=== PATIENT | male | born 1960 | race Caucasian/White ===

== ENCOUNTER 2017-08-11 16:01 | Emergency (ER) | payer BC ==
[~2017-08-11] VITALS: Ht 165.1 cm; Wt 68.0 kg
[~2017-08-11 16:01] MED LIST: KEFLEX 500MG.500 MG PO; TRAMADOL 50MG T50 MG PO
--- OUTSIDE RECORDS SUMMARY | 2017-08-11 16:20 | External Medical Summary Rpt | CCD ---
Author Author , DARIUS MCCOY Address Unknown Phone [email or web address] Purpose Continuity of Care Document - through 2016
--- OUTSIDE RECORDS SUMMARY | 2017-08-11 16:20 | External Medical Summary Rpt | CCD ---
Author Author , DARIUS MCCOY Address Unknown Phone [email or web address] Purpose Continuity of Care Document - through 2016
--- OUTSIDE RECORDS SUMMARY | 2017-08-11 16:21 | External Medical Summary Rpt | CCD ---
Author Author [employer] Organization [employer] Address Unknown Phone Unavailable Purpose Continuity of Care Document - through 2016
--- OUTSIDE RECORDS SUMMARY | 2017-08-11 16:21 | External Medical Summary Rpt ---
Author Author DARIUS Collins, [employer] Organization [employer] Address Unknown Phone Unavailable
--- OUTSIDE RECORDS SUMMARY | 2017-08-11 16:21 | External Medical Summary Rpt | CCD ---
Demographics Preferred Language Frisian Marital Status Unknown Temple Affiliation Unknown Race Unknown Ethnic Group Unknown Author Author , DARIUS MCCOY Address Unknown Phone Immunization No patient found.
--- OUTSIDE RECORDS SUMMARY | 2017-08-11 16:21 | External Medical Summary Rpt | CCD ---
Demographics Preferred Language Sinhala Marital Status Unknown Spiritism Affiliation Unknown Race Unknown Ethnic Group Unknown Author Author , DARIUS MCCOY Address Unknown Phone Immunization No patient found.
--- NOTE | 2017-08-11 16:27 | Emergency Room Report ---
History of Present Illness Time Seen by 161Marzena Presenting Problem in Triage Pt arrived:Walked Presenting Problem:PATIENT STATES HE HAD "AN ATTACK" AT WORK. STATES HE HAD CHEST TIGHTNESS, SHORTNESS OF BREATH, AND SHAKING. ALSO STATING THE BACK OF HIS NECK HURTS. WHEN ASKED IF HE HAS ISSUES WITH ANXIETY, PATIENT STATED, "i GUESS. " Onset of symptoms date/time:08/11/17 or onset unknown for: Treatment Prior to Arrival: [employer] Provided by: Sepsis Risk Assessment: Temp: 98.4 B/P: 185/119 MAP: 141 Pulse: 122 Resp: 20 Recent fever? N Clinical Suspician of Infection? N Mental Status: 1 - Regular (Normal Baseline) Sepsis Risk:Possible Sepsis Risk Have you (or family members/close friends) recently traveled outside the [place]? N If Yes, where/when: Have you had exposure to infectious disease within the past month? TB? Other? Specify: Patient felt anxious about 90 minutes ago, was at work, felt SOB, face and hands tingling, self resolving within a few minutes. No SOB now; no calf pain; no n/v, no diaphoresis, no cough. No pmh CAD; has hx HTN and dips tobacco; mom w/ hx CAD ; he denies DM; he denies hyperlipidemia. ALLERGIES Coded Allergies: NO KNOWN ALLERGIES (08/11/17) History Medical History General CAD? No Angina: No SD: No Hypertension? Yes Hyperlipidemia? No CHF? No DVT? No PE? No COPD? No Asthma? No Anemia? No GERD? No Gastric ulcers? No GI Bleed? No Hernia? No Thyroid Problems? No Hypothyroidism? No CVA? No Seizures? No Diabetes? No Renal Insuffiency? No End Stage Renal Disease? No UTI? No Stones? No BPH? No GB Disease: Yes Nephritic Syndrome? No Asplenia? No Hepatitis? No Sickle Cell Disease? No Arthritis? No Migraines? No Cataracts? No Glaucoma? No MRSA? No HIV? No TB? No Anxiety? Yes Depression? No Cancer? 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 Social History Smoking Hx Smoker: Former Smoker Tobacco: No Packs/day < 1 Pack Alcohol Alcohol: No Review of Systems All Other Systems Reviewed and Negative Cardiovascular see HPI Physical Exam Vital Signs Vital Signs Date Time Temp Pulse Resp B/P Pulse O2 O2 Flow FiO2 Ox Delivery Rate 08/11 1718 112 16 166/99 98 08/11 1607 98.4 122 20 185/119 94 General Appearance normal appearance, WD/WN, no apparent distress Eye Exam - bilateral eye normal exam, bilateral eye PERRL, bilateral eye EOMI Neck normal inspection, non-tender, supple, full range of motion Respiratory Status Yes: trachea midline, chest symmetrical, non tender chest. No: respiratory distress, tender on palpation, use of accessory muscles, pain on inspiration, pain on expiration, productive cough, non productive cough. Lung Sounds bilateral: normal breath sounds, lungs clear. Cardiovascular normal exam, regular rate/rhythm, no peripheral edema, no gallop, no JVD, no murmur, no rub, normal peripheral pulses Gastrointestinal normal bowel sounds, normal exam, non tender, soft, no organomegaly, no pulsatile mass, no guarding, no rebound Extremities non-tender, normal range of motion, normal inspection, normal capillary refill, no calf tenderness, no pedal edema Strength 5 Upper Ext (L), 5 Upper Ext (R), 5 Lower Ext (L), 5 Lower Ext (R) Neurologic alert, normal exam, no motor/sensory deficits, oriented x 3 Glascow Coma Scale Glascow Coma Scale Response Value EYE response: 4 Spontaneously 4 MOTOR response: 6 OBEYS 6 VERBAL response: 5 Oriented & Converses 5 Total 15 Skin intact, normal color, warm/dry Medical Decision Making LABS/Meds/Orders Pt receiving controlled substance in ED? No Results/Orders Laboratory Tests 08/11/17 1750: Troponin I < 0.02 08/11/17 1625: Sodium 139, Potassium 4.1, Chloride 103, Carbon Dioxide 30, BUN 18, Creatinine 1.4 H, Estimated Creat Clear 57, Estimated GFR (MDRD) 53, Glucose 107 H, Calcium 9.4, Total Bilirubin 0.4, AST 23, ALT 29, Alkaline Phosphatase 103, Creatine Kinase 194, CK-MB (CK-2) Rel Index 0.8, CK and CKMB Interp 1.6, Troponin I < 0.02, Total Protein 7.7, Albumin 4.3, Globulin 3.4 H, Albumin/ Globulin Ratio 1.3, WBC 7.6, RBC 4.94, Hgb 15.4, Hct 44.0, MCV 89.2, RDW 12.3, Plt Count 233, MPV 7.5, Gran % 54.1, Gran # 4.1, Lymphocytes % 34.6, Monocytes % 6.2, Eosinophils % 4.3, Basophils % 0.9, Lymphocytes # 2.6, Monocytes # 0.5, Eosinophils # 0.3, Basophils # 0.1, PUBS MCHC 34.9, MCH 31.2 Current Medication Orders Sig/Bren Start time Last Medication Dose Route Stop Time Status Admin Sodium Chloride 10 ML PRN PRN 08/11 1615 AC IV 08/12 161 Orders Procedure Date/time Status TROPONIN I 08/11 1730 Complete CHEST(2 VIEWS-NOT PORTABLE) 08/11 163 Active 12 LEAD EKG-OTILIA (INITIAL) 08/11 1613 Active ELECTROCARDIOGRAM REQUEST 08/11 1613 Active IV SALINE LOCK 08/11 1613 Active CBC WITH AUTO DIFF 08/11 1613 Complete CARDIAC ENZYMES 08/11 1613 Complete CHEM 12 PROFILE 08/11 1613 Complete CM/EKG CM/EKG EKG rate, NSR, rhythm, no evid. of ischemic chgs, no ectopy, normal QRS, normal ME, normal EKG (Stach 115) XRAY/CT/US XRAY/CT/US XRAY chest XR interpretation by reviewed by me Xray Results normal/NAD, no infiltrates, normal heart size, normal lung inflation scott Pulmonary Embolism Score [facility]S CRITERIA FOR PE [facility] CRITERIA FOR PE Response Value Clinical signs/symptoms of DVT NO 0 PE is #1 diagnosis or equally likely NO 0 Heart rate is > 100 YES 1 Immobile at least 3 days, or surgery in past 4 wks NO 0 Previously, obj. diagnosed PE or DVT NO 0 Hemoptysis NO 0 Malignancy w/Rx within 6mo, or palliative NO 0 Total 1 Patient's PE Risk 1-2pts=MOD RISK (28%) (very low clinical suspicion) Progress ED Progress Notes Time 1824 Comment Second trop normal; no pain in ED; will f/u Dr. Greenfield Departure Departure Time of Disposition 1825 Disposition DC Home or Self Care(routine) Clinical Impression Primary Impression: Atypical chest pain Condition STABLE Referrals Mayo Greenfield MD (Family) Patient Instructions DI for Atypical Chest Pain Additional Instructions Take low dose aspirin daily until follow up with Dr. Greenfield; see him in two to three days for follow up. Discharge Counseling Counseled pt/family regarding diagnosis, test results, medications/RX, home care, follow up needs ED Critical Care Critical Care No at 1820
[2017-08-11 16:34] LABS: HEMOGLOBIN 15.4 g/dL (14.1-18.0); LYMPH # 2.6 K/mm3 (0.7-4.5); LYMPH % 34.6 % (10-50)
[2017-08-11 16:58] LABS: BUN 18 mg/dL (7-18)
[2017-08-11 16:59] LABS: GFR (ESTIMATED) 53 ML/MIN (>60)
[2017-08-11 18:52] VITALS: BP 167/102
--- NOTE | 2017-08-12 11:41 | RADIOLOGY REPORT PS360 ---
CHEST(2 VIEWS-NOT PORTABLE) HISTORY: CHEST TIGHTNESS WITH EPISODE chest pain Patient Age: 57 years: Male Ordering Physician: Danielle Gutierrez MD TECHNIQUE: PA and lateral chest COMPARISON :No previous chest films FINDINGS Lungs appear well expanded and clear with nothing definitely acute. Upper normal markings at the medial left base retrocardiac region could reflect some minor atelectasis here but no convincing infiltrate. No pleural effusion no pneumothorax. Chest wall intact. Heart is normal in size the zoey and mediastinal structures satisfactory. IMPRESSION: Nothing definitely acute Upper normal markings at medial LLL-most likely reflect some minor atelectasis. Doubt early infiltrate.
== END 2017-08-11 18:53 | disposition home or self-care (01) ==
LOC: ER 16:01
PROVIDERS: Emergency Medicine
DX: R07.89 Other chest pain (principal); I10 Essential (primary) hypertension; Z87.891 Personal history of nicotine dependence